=== PATIENT | male | born 1990 ===

== ENCOUNTER 2025-07-09 19:35 | Emergency (ER) | payer BC ==
[2025-07-09] MEDS ORDERED: Ondansetron PF 4 MG/2 ML Vial ONE (20:51)
== END 2025-07-09 21:57 | disposition home or self-care (01) ==
LOC: BURERS 19:35
DX: E86.0 Dehydration (principal); E86.9 Volume depletion, unspecified; R11.0 Nausea
CPT/HCPCS: 96361; 96374; J2405